=== PATIENT | female | born 1970 | race Caucasian/White ===

== ENCOUNTER 2017-06-04 23:48 | Emergency (ER) | payer BC ==
--- NOTE | 2017-06-05 00:10 | EDM.PDOC ---
ED HPI GENERAL MEDICAL PROBLEM - General Chief Complaint: Respiratory Problem Stated Complaint: CHEST PAIN/SORE THROAT Time Seen by Provider: 06/05/17 00:02 - History of Present Illness INITIAL COMMENTS - FREE TEXT/NARRATIVE: HISTORY AND PHYSICAL: History of present illness: Patient 47-year-old female presents with concern of cough sore throat congestion over last several days states she had low-grade fever denies states she has had some mild vomiting and diarrhea denies other concern. There's been no abdominal pain vaginal discharge or urinary symptoms or other complaints Review of systems: As per history of present illness and below otherwise all systems reviewed and negative. Past medical history: As per history of present illness and as reviewed below otherwise noncontributory. Surgical history: As per history of present illness and as reviewed below otherwise noncontributory. Social history: No reported history of drug or alcohol abuse. Family history: As per history of present illness and as reviewed below otherwise noncontributory. Physical exam: HEENT: Atraumatic, normocephalic, pupils reactive, negative for conjunctival pallor or scleral icterus, mucous membranes moist, throat clear, neck supple, nontender, trachea midline. Lungs: Clear to auscultation, breath sounds equal bilaterally, chest nontender. Heart: S1S2, regular, negative for clicks, rubs, or JVD. Abdomen: Soft, nondistended, nontender. Negative for masses or hepatosplenomegaly. Negative for costovertebral tenderness. Pelvis: Stable nontender. Genitourinary: Deferred. Rectal: Deferred. Extremities: Atraumatic, negative for cords or calf pain. Neurovascular unremarkable. Neuro: Awake, alert, oriented. Cranial nerves II through XII unremarkable. Cerebellum unremarkable. Motor and sensory unremarkable throughout. Exam nonfocal. Diagnostics: Rapid strep and influenza screen chest x-ray Therapeutics: None Impression: #1 viral syndrome Definitive disposition and diagnosis as appropriate pending reevaluation and review of above. Throat Pain Score (Numeric/FACES): 8 - Related Data Allergies Allergy/AdvReac Type Severity Reaction Status Date / Time No Known Allergies Allergy Verified 06/04/17 23:57 Home Meds: Home Meds Levothyroxine Sodium [Synthroid] 75 mcg PO ACBREAKFAST 07/29/16 [History] Past Medical History - Past Health History Medical/Surgical History: Denies Medical/Surgical History Gastrointestinal History: Reports: GERD Genitourinary History: Reports: None Endocrine/Metabolic History: Reports: Hypothyroidism - Infectious Disease History Infectious Disease History: Reports: Chicken Pox - Past Surgical History Female Surgical History: Reports: Section Endocrine Surgical History: Reports: None Social & Family History - Tobacco Use Smoking Status *Q: Never Smoker Second Hand Smoke Exposure: No - Caffeine Use Caffeine Use: Reports: Soda - Recreational Drug Use Recreational Drug Use: No ED ROS GENERAL - Review of Systems Review Of Systems: ROS reveals no pertinent complaints other than HPI. ED EXAM, GENERAL - Physical Exam Exam: See Below (See dictation) Course - Vital Signs Last Recorded V/S: Last Vital Signs Temp 36.1 C 06/04/17 23:54 Pulse 100 06/04/17 23:54 Resp 20 06/04/17 23:54 BP 127/70 06/04/17 23:54 Pulse Ox 95 06/04/17 23:54 - Orders/Labs/Meds Orders: Active Orders 24 hr Category Date Time Status Chest 2V [CR] Stat Exams 06/05/17 00:03 Taken CULTURE STREP A CONFIRMATION [RM] Stat Lab 06/05/17 00:09 Results STREP SCRN A RAPID W CULT CONF [RM] Stat Lab 06/05/17 00:09 Results Departure - Departure Time of Disposition: 00:40 Disposition: Home, Self-Care 01 Condition: Good Clinical Impression: Influenza - Discharge Information Referrals: PCP,None [Primary Care Provider] - Forms: ED Department Discharge Additional Instructions: The following information is given to patients seen in the emergency department who are being discharged to home. This information is to outline your options for follow-up care. We provide all patients seen in our emergency department with a follow-up referral. The need for follow-up, as well as the timing and circumstances, are variable depending upon the specifics of your emergency department visit. If you don't have a primary care physician on staff, we will provide you with a referral. We always advise you to contact your personal physician following an emergency department visit to inform them of the circumstance of the visit and for follow-up with them and/or the need for any referrals to a consulting specialist. The emergency department will also refer you to a specialist when appropriate. This referral assures that you have the opportunity for followup care with a specialist. All of these measure are taken in an effort to provide you with optimal care, which includes your followup. Under all circumstances we always encourage you to contact your private physician who remains a resource for coordinating your care. When calling for followup care, please make the office aware that this follow-up is from your recent emergency room visit. If for any reason you are refused follow-up, please contact the [facility] emergency department at and asked to speak to the emergency department charge nurse. Push fluids Motrin/Tylenol as directed Zofran as prescribed follow-up private medical doctor 1-2 days return as needed as discussed - My Orders Last 24 Hours: My Active Orders 06/05/17 00:03 Chest 2V [CR] Stat 06/05/17 00:09 CULTURE STREP A CONFIRMATION [RM] Stat STREP SCRN A RAPID W CULT CONF [RM] Stat - Assessment/Plan Last 24 Hours: My Active Orders 06/05/17 00:03 Chest 2V [CR] Stat 06/05/17 00:09 CULTURE STREP A CONFIRMATION [RM] Stat STREP SCRN A RAPID W CULT CONF [RM] Stat
[2017-06-05] MEDS ORDERED: Ondansetron 4 MG Tab.DIS PO ONE (00:40)
[2017-06-05 01:03] VITALS: BP 113/77
--- NOTE | 2017-06-05 17:56 | CR ---
EXAM DATE: 06/04/17 PATIENT'S AGE: 47 Patient: LASHAY MUNSON Facility: [place], [place] Site . Site : [id number] Study: XRay Chest [id number]/22/2017 12:32:16 AM Ordering Physician: Adi Hickey Final Report: INDICATION: cough TECHNIQUE: Chest 2 views COMPARISON: None FINDINGS: Cardiovascular and mediastinum: Heart size and vasculature are normal in caliber and appearance. Mediastinum is within normal limits. Lungs and pleural spaces: No focal consolidation. Eventration of the right hemidiaphragm. No sign of pleural effusion. No pneumothorax. Bones and soft tissues: No significant findings. IMPRESSION: No acute cardiopulmonary disease. Dictated by Jose Fraser MD @ 06/05/2017 12:43:22 AM Dictated by: Jose Fraser MD @ 06/05/2017 00:43:29 (Electronic Signature) Report Signed by Proxy. [facility] HEALTHCARE SYSTEMAndressa
== END 2017-06-05 00:55 | disposition home or self-care (01) ==
LOC: MW.ED 23:48
DX: J11.1 Influenza due to unidentified influenza virus with other respiratory manifestations (principal); B34.9 Viral infection, unspecified; E03.9 Hypothyroidism, unspecified
CPT/HCPCS: 71020; 87081; 87804; 87880; 99284; A9270; 99282

== ENCOUNTER 2021-01-25 06:29 | Day surgery (SDC) | payer BC ==
[~2021-01-25 06:29] MED LIST: Lactated Ringers 1,000 ML IV SCH
[2021-01-25] MEDS ORDERED: propofoL 50 ML ONE (07:05)
[2021-01-25] MEDS ORDERED: fentaNYL 100 MCG/2 ML SDV ONE (07:07)
--- NOTE | 2021-01-25 07:11 | PCM.PREANE ---
Preanesthetic Assessment - Procedure Proposed Procedure: EGD/Colonoscopy - Anesthesia/Transfusion/Family Hx Anesthesia History: Prior Anesthesia Without Reaction Transfusion History: No Prior Transfusion(s) - Review of Systems General: No Symptoms Pulmonary: No Symptoms Cardiovascular: No Symptoms Gastrointestinal: No Symptoms Neurological: No Symptoms Other: Reports: None - Physical Assessment NPO Status Date: 01/24/21 NPO Status Time: 23:00 (Liquids, had eggs at 2030) Vital Signs: Last Vital Signs Temp 97.9 F 01/25/21 06:30 Pulse 91 01/25/21 06:30 Resp 16 01/25/21 06:30 BP 138/90 01/25/21 06:30 Pulse Ox 95 01/25/21 06:30 Height: 4 ft 11 in Weight: 113.852 kg (Morbid Obesity) ASA Class: 3 Mental Status: Alert & Oriented x3 Airway Class: Mallampati = 2 Dentition: Reports: Normal Dentition Thyro-Mental Finger Breadths: 3 Mouth Opening Finger Breadths: 3 ROM/Head Extension: Full Lungs: Clear to Auscultation, Normal Respiratory Effort Cardiovascular: Regular Rate, Regular Rhythm - Lab Values: Laboratory Last Values Urine HCG, Qual NEGATIVE (NEGATIVE) 01/25/21 06:30 - Allergies Allergies/Adverse Reactions: Allergies Allergy/AdvReac Type Severity Reaction Status Date / Time No Known Allergies Allergy Verified 01/21/21 09:53 - Acknowledgements Anesthesia Type Planned: General Anesthesia Pt an Appropriate Candidate for the Planned Anesthesia: Yes Alternatives and Risks of Anesthesia Discussed w Pt/Guardian: Yes Pt/Guardian Understands and Agrees with Anesthesia Plan: Yes PreAnesthesia Questionnaire - Past Health History Medical/Surgical History: Denies Medical/Surgical History HEENT History: Reports: Other (See Below) Other HEENT History: wears glasses Cardiovascular History: Reports: None Respiratory History: Reports: None Gastrointestinal History: Reports: GERD, Other (See Below) Other Gastrointestinal History: abd bloating Genitourinary History: Reports: None [employer] History: Reports: Musculoskeletal History: Reports: None Neurological History: Reports: None Psychiatric History: Reports: Depression Endocrine/Metabolic History: Reports: Hypothyroidism, Obesity/BMI 30+ Other Endocrine/Metabolic History: hypothyroidism 3 years ago, no longer on medication Hematologic History: Reports: None Immunologic History: Reports: None Oncologic (Cancer) History: Reports: None Dermatologic History: Reports: None - Infectious Disease History Infectious Disease History: Reports: Chicken Pox - Past Surgical History Head Surgeries/Procedures: Reports: None HEENT Surgical History: Reports: None Cardiovascular Surgical History: Reports: None Respiratory Surgical History: Reports: None GI Surgical History: Reports: None Female Surgical History: Reports: Section Endocrine Surgical History: Reports: None Neurological Surgical History: Reports: None Musculoskeletal Surgical History: Reports: None Oncologic Surgical History: Reports: None Dermatological Surgical History: Reports: None - SUBSTANCE USE Tobacco Use Status *Q: Never Tobacco User - HOME MEDS Home Medications: Home Meds Omeprazole 20 mg PO DAILY 01/21/21 [History] Sertraline HCl 0.5 tab PO DAILY 01/21/21 [History] - CURRENT (IN HOUSE) MEDS Current Meds: Current Medications Lactated Ringer's (Ringers, Lactated) 1,000 mls @ 125 mls/hr IV ASDIRECTED [facility] Last Admin: 01/25/21 07:03 Dose: 125 mls/hr Documented by:
[2021-01-25] MEDS ORDERED: Propofol 200 MG/20 ML SDV ONE (08:20)
--- NOTE | 2021-01-25 08:39 | PCM.OPNOTE ---
- General Post-Op/Procedure Note Date of Surgery/Procedure: 01/25/21 Operative Procedure(s): Esophagogastroduodenoscopy with antral and gastric cardia biopsies. Colonoscopy with distal transverse colon cold polypectomy. Pre Op Diagnosis: Abdominal bloating. Epigastric pain. Intermittent rectal bleeding. Post-Op Diagnosis: Chronic gastritis of the antrum and gastric cardia. Distal transverse colon polyp. Anesthesia Technique: MAC (ASA III) Primary Surgeon: Torey Reeder Condition: Good Free Text/Narrative:: DICTATION [id number] CPT CODE [id number]
--- NOTE | 2021-01-25 08:43 | PCM.POSTAN ---
POST ANESTHESIA ASSESSMENT - MENTAL STATUS Mental Status: Alert, Oriented - VITAL SIGNS Vital Signs: Last Vital Signs Temp 97.9 F 01/25/21 06:30 Pulse 91 01/25/21 06:30 Resp 16 01/25/21 06:30 BP 138/90 01/25/21 06:30 Pulse Ox 95 01/25/21 06:30 - RESPIRATORY Respiratory Status: Respiratory Rate WNL, Airway Patent, O2 Saturation Stable - CARDIOVASCULAR CV Status: Pulse Rate WNL, Blood Pressure Stable - GASTROINTESTINAL GI Status: No Symptoms - PAIN Pain Score: 3 ("my stomach hurts") - POST OP HYDRATION Hydration Status: Adequate & Stable
[2021-01-25] MEDS ORDERED: Lactated Ringers 1,000 ML IV SCH (08:45)
[2021-01-25 08:58] VITALS: BP 112/70; PULSE 79
--- NOTE | 2021-01-25 09:20 | PCM48HPAN ---
Post Anesthesia Note - EVALUATION WITHIN 48HRS OF ANESTHETIC Vital Signs in Normal Range: Yes Patient Participated in Evaluation: Yes Respiratory Function Stable: Yes Airway Patent: Yes Cardiovascular Function Stable: Yes Hydration Status Stable: Yes Pain Control Satisfactory: Yes Nausea and Vomiting Control Satisfactory: Yes Mental Status Recovered: Yes Vital Signs: Last Vital Signs Temp 97.7 F 01/25/21 08:50 Pulse 79 01/25/21 08:50 Resp 14 01/25/21 08:50 BP 112/70 01/25/21 08:50 Pulse Ox 95 01/25/21 08:50 - COMMENTS/OBSERVATIONS Free Text/Narrative:: Pt doing well post-op. VSS. No apparent anesthetic complications. Dr. David Lacy
--- NOTE | 2021-01-25 10:53 | OR ---
SURGEON: Torey Reeder M.D. DATE OF PROCEDURE: 01/25/2021 OPERATION PERFORMED: Colonoscopy with cold transverse colon polypectomy. PRIMARY SURGEON: Torey Reeder MD ANESTHESIA: MAC. ASA CLASSIFICATION: III. PREOPERATIVE DIAGNOSES: Abdominal bloating with rectal bleeding and left-sided abdominal pain. POSTOPERATIVE DIAGNOSIS: Small transverse colon polyp. DESCRIPTION OF PROCEDURE: With the patient having completed upper GI endoscopy, she was maintained in the left lateral decubitus position. The colonoscope was inserted into the rectum and advanced without difficulty to the cecum. The cecum was identified by internal landmarks and external pressure. The colonoscope was retroflexed to visualize the ascending colon from below, then straightened and slowly withdrawn. The cecum, ascending colon, hepatic flexure, and proximal, mid, and transverse colon showed no tumors, polyps, diverticula, or angiodysplastic changes. Small polyp was encountered in the distal transverse colon and removed with cold biopsy forceps. The splenic flexure, descending colon, sigmoid colon, and rectum showed no other tumors, polyps, diverticula, or angiodysplastic changes. The colonoscope having been withdrawn to the rectum was now retroflexed to visualize the anal orifice from above. No tumors, polyps, or acute hemorrhoidal changes were noted. The colonoscope was then straightened, the rectum aspirated, and the colonoscope removed. The patient tolerated the procedure well and was taken to recovery room in stable condition. BEATA / HENNA /[id number]
--- NOTE | 2021-01-25 11:14 | OR ---
SURGEON: Torey Reeder M.D. DATE OF PROCEDURE: 01/25/2021 OPERATION PERFORMED: Esophagogastroduodenoscopy with antral and cardia biopsy. PRIMARY SURGEON: Torey Reeder M.D. ANESTHESIA: MAC. ASA CLASSIFICATION: III. PREOPERATIVE DIAGNOSIS: Abdominal bloating with epigastric pain. POSTOPERATIVE DIAGNOSIS: Chronic gastritis. DESCRIPTION OF PROCEDURE: The patient was taken to the endoscopy room and positioned on the endoscopy table in the left lateral decubitus position. Time-out was called for appropriate identification of the patient and procedure. Monitored anesthesia care was provided. The bite block was placed between the patient's teeth. The gastroscope was inserted through the bite block and advanced without difficulty through the esophagus and stomach into the duodenum where examination was now carried out in a retrograde fashion. The duodenum showed no acute inflammatory changes or ulcerations. The gastroscope was withdrawn to the distal stomach which did show mild to moderate gastritis. No ulcerations were noted. Antral biopsies were obtained. The gastroscope was retroflexed to visualize the proximal stomach which also showed slightly more acute appearing gastritis. Separate biopsies of the gastric cardia were obtained. The gastroscope was then straightened and slowly withdrawn. No ulcers were noted on the greater or lesser curvatures. The GE junction was well defined and showed no acute inflammatory changes or ulcerations. The esophagus itself demonstrated good contractility. No mid or proximal lesions were identified. The vocal cords were visualized as the scope was withdrawn. No vocal cord lesions were identified. The gastroscope was then removed with the patient having tolerated the procedure well. Following colonoscopy, she was taken to recovery room in stable condition. BEATA / HENNA /[id number]
== END 2021-01-25 09:30 | disposition home or self-care (01) ==
LOC: MW.SDS 06:29
PROVIDERS: ATTEND Surgery
DX: D12.3 Benign neoplasm of transverse colon (principal); K29.50 Unspecified chronic gastritis without bleeding; B96.81 Helicobacter pylori [H. pylori] as the cause of diseases classified elsewhere; E66.01 Morbid (severe) obesity due to excess calories; Z68.43 Body mass index [BMI] 50.0-59.9, adult
CPT/HCPCS: 43239; 45380; 81025; 88305; 88342; J2704; J3010; J7120; 00813

== ENCOUNTER 2021-08-12 19:54 | Emergency (ER) | payer BC ==
[2021-08-12 20:44] LABS: CORONAVIRUS COVID-19 NAA NEGATIVE (NEGATIVE); INFLUENZA A NAA NEGATIVE (NEGATIVE); INFLUENZA B NAA NEGATIVE (NEGATIVE)
[2021-08-12 21:51] VITALS: BP 132/86; PULSE 84
== END 2021-08-12 21:51 | disposition home or self-care (01) ==
LOC: MW.ED 19:54
DX: J01.90 Acute sinusitis, unspecified (principal); K21.9 Gastro-esophageal reflux disease without esophagitis; E03.9 Hypothyroidism, unspecified; E66.9 Obesity, unspecified; Z68.41 Body mass index [BMI] 40.0-44.9, adult; Z79.899 Other long term (current) drug therapy; Z20.822 Contact with and (suspected) exposure to COVID-19
CPT/HCPCS: 0240U; 71045; 99283